=== PATIENT | male | born 1965 | race Caucasian/White ===

== ENCOUNTER 2017-05-02 19:52 | Emergency (ER) | payer MEDICARE ==
[~2017-05-02 19:52] MED LIST: ATRIPLA TABLET1 TAB PO; DIFLUCAN50 MG PO
[2017-05-02 20:41] LABS: BASOPHILS 0.4 % (0-2); EOSINOPHILS 2.2 % (0-7); HEMATOCRIT 33.4 % (42.0-54.0); HEMOGLOBIN 11.1 g/dL (13.5-17.5); IMMATURE GRANULOCYTES 1.1 % (0-5); LYMPHOCYTES 15.6 % (15-50); MCH 27.1 pg (26.0-34.0); MCHC 33.2 g/dL (31.0-37.0); MCV 81.5 fL (80.0-100.0); MEAN PLATELET VOLUME 10.4 fL (7.4-10.4); MONOCYTES 10.4 % (2-11); NEUTROPHILS 70.3 % (40-80); PLATELET COUNT 219 10x3/uL (130-400); RDW 13.7 % (11.5-14.5); WBC 5.5 10x3/uL (4.8-10.8)
[2017-05-02 20:55] LABS: ALBUMIN 2.3 g/dL (3.4-5.0); ANION GAP 13.5 mmol/L (8-16); BILIRUBIN - TOTAL 1.78 mg/dL (0.2-1.3); CALCIUM 8.2 mg/dL (8.5-10.1); CARBON DIOXIDE 22.1 mmol/L (21.0-32.0); CREATININE - SERUM 2.2 mg/dL (0.6-1.3); POTASSIUM - SERUM 4.6 mmol/L (3.5-5.1); PROTEIN - SERUM 8.6 g/dL (6.4-8.2)
== END 2017-05-02 22:32 | disposition home or self-care (01) ==
LOC: D.ER 19:52
PROVIDERS: Physician Assistant
DX: R50.9 Fever, unspecified (principal); R53.81 Other malaise; B20 Human immunodeficiency virus [HIV] disease; B19.20 Unspecified viral hepatitis C without hepatic coma; J44.9 Chronic obstructive pulmonary disease, unspecified; B37.0 Candidal stomatitis; C18.9 Malignant neoplasm of colon, unspecified; K21.9 Gastro-esophageal reflux disease without esophagitis; R06.2 Wheezing; R53.83 Other fatigue; R05 Cough; F17.200 Nicotine dependence, unspecified, uncomplicated

== ENCOUNTER → 2017-06-30 13:19 | Outpatient (CLI) | payer MEDICARE ==
[2017-07-01 14:45] LABS: BASOPHILS 0.3 % (0-2); EOSINOPHILS 2.4 % (0-7); HEMATOCRIT 35.1 % (42.0-54.0); HEMOGLOBIN 11.5 g/dL (13.5-17.5); IMMATURE GRANULOCYTES 1.8 % (0-5); LYMPHOCYTES 27.8 % (15-50); MCH 27.6 pg (26.0-34.0); MCHC 32.8 g/dL (31.0-37.0); MCV 84.4 fL (80.0-100.0); MEAN PLATELET VOLUME 9.6 fL (7.4-10.4); MONOCYTES 8.6 % (2-11); NEUTROPHILS 59.1 % (40-80); PLATELET COUNT 250 10x3/uL (130-400); RBC 4.16 10x6/uL (4.20-6.10); RDW 16.6 % (11.5-14.5); WBC 7.1 10x3/uL (4.8-10.8)
[2017-07-01 15:17] LABS: ALBUMIN 2.9 g/dL (3.4-5.0); ANION GAP 11.1 mmol/L (8-16); BILIRUBIN - TOTAL 2.6 mg/dL (0.2-1.3); CALCIUM 8.8 mg/dL (8.5-10.1); CARBON DIOXIDE 26.7 mmol/L (21.0-32.0); CHOL - HDL RATIO 7.3 ratio (2.3-4.9); CREATININE - SERUM 1.7 mg/dL (0.6-1.3); LDL-HDL RATIO 4.9 ratio (1.5-3.5); POTASSIUM - SERUM 4.8 mmol/L (3.5-5.1); THYROID STIMULATING HORMONE 2.07 uIU/mL (0.36-3.74)
[2017-07-02 10:19] LABS: HEPATITIS C ANTIBODY >11.0 (0.0-0.9)
[2017-07-02 12:18] LABS: BASOS 0 % (()); CD4 - % CD4 POS. LYMPH 11.5 % (30.8-58.5); CD4 - ABSOLUTE CD4 HELPER 230 /uL (359-1519); EOS 2 % (()); EOS (ABSOLUTE) 0.2 x10E3/uL (0.0-0.4); HEMATOCRIT 34.3 % (37.5-51.0); LYMPHS 28 % (()); MCH 26.6 pg (26.6-33.0); MCHC 32.1 g/dL (31.5-35.7); MCV 83 fL (79-97); MONOCYTES 8 % (()); MONOCYTES (ABSOLUTE) 0.6 x10E3/uL (0.1-0.9); NEUTROPHILS 60 % (()); NEUTROPHILS (ABSOLUTE) 4.3 x10E3/uL (1.4-7.0); PLATELETS 261 x10E3/uL (150-379); RBC 4.13 x10E6/uL (4.14-5.80); RDW 17.6 % (12.3-15.4); WBC 7.3 x10E3/uL (3.4-10.8)
[2017-07-02 13:17] LABS: RAPID PLASMA REAGIN Reactive (Non Reactive); TREPONEMA PALLIDUM AB Positive (Negative)
== END | disposition home or self-care (01) ==
LOC: D.LAB 13:19
PROVIDERS: Family Medicine
DX: B97.35 Human immunodeficiency virus, type 2 [HIV 2] as the cause of diseases classified elsewhere (principal)

== ENCOUNTER 2017-12-07 13:53 | Emergency (ER) | payer MEDICARE | END 2017-12-07 16:20 | disposition home or self-care (01) | LOC: D.ER 13:53 | DX: J11.1 Influenza due to unidentified influenza virus with other respiratory manifestations (principal); J44.9 Chronic obstructive pulmonary disease, unspecified; Z85.038 Personal history of other malignant neoplasm of large intestine; B19.20 Unspecified viral hepatitis C without hepatic coma; B20 Human immunodeficiency virus [HIV] disease; F17.200 Nicotine dependence, unspecified, uncomplicated ==

== ENCOUNTER → 2018-02-24 12:34 | Outpatient (CLI) | payer MEDICARE ==
[2018-02-24 14:20] LABS: ALBUMIN 3.2 g/dL (3.4-5.0); ANION GAP 13.4 mmol/L (8-16); BILIRUBIN - TOTAL 0.3 mg/dL (0.2-1.3); CALCIUM 9.1 mg/dL (8.5-10.1); CARBON DIOXIDE 23.4 mmol/L (21.0-32.0); CREATININE - SERUM 1.7 mg/dL (0.6-1.3); POTASSIUM - SERUM 5.8 mmol/L (3.5-5.1); PROTEIN - SERUM 8.7 g/dL (6.4-8.2)
== END | disposition home or self-care (01) ==
LOC: D.LAB 12:34
PROVIDERS: Student in an Organized Health Care Education/Training Program
DX: R89.9 Unspecified abnormal finding in specimens from other organs, systems and tissues (principal)

== ENCOUNTER 2018-03-22 21:52 | Emergency (ER) | payer MEDICARE ==
[~2018-03-22] VITALS: Ht 175.3 cm; Wt 65.9 kg
[2018-03-22 22:23] VITALS: Ht 175.3 cm; Wt 65.9 kg
[2018-03-23 03:25] VITALS: BP 168/84
== END 2018-03-23 04:00 | disposition home or self-care (01) ==
LOC: D.ER 21:52
DX: K22.2 Esophageal obstruction (principal); R13.10 Dysphagia, unspecified; B20 Human immunodeficiency virus [HIV] disease

== ENCOUNTER → 2018-04-01 12:00 | Outpatient (CLI) | payer MEDICARE ==
[2018-03-22 22:23] VITALS: BMI 21.4
[~2018-04-01 12:00] MED LIST changes: +Ancef 2 GM/Dextrose IV; +FLORAJEN3 CAPS460 MG PO; +GENVOYA PO; +IMODIUM2 MG PO; +STRIBILD TABLE1 EACH PO
[2018-04-01 13:07] LABS: BASOPHILS 0.6 % (0-2); EOSINOPHILS 4.9 % (0-7); HEMATOCRIT 34.3 % (42.0-54.0); HEMOGLOBIN 11.4 g/dL (13.5-17.5); IMMATURE GRANULOCYTES 0.6 % (0-5); LYMPHOCYTES 30.3 % (15-50); MCH 30.5 pg (26.0-34.0); MCHC 33.2 g/dL (31.0-37.0); MCV 91.7 fL (80.0-100.0); MEAN PLATELET VOLUME 9.6 fL (7.4-10.4); MONOCYTES 9.1 % (2-11); NEUTROPHILS 54.5 % (40-80); RBC 3.74 10x6/uL (4.20-6.10); RDW 14.6 % (11.5-14.5); WBC 4.7 10x3/uL (4.8-10.8)
[2018-04-01 13:15] LABS: PLATELET COUNT 308 10x3/uL (130-400)
[2018-04-01 13:32] LABS: ALBUMIN 3.3 g/dL (3.4-5.0); ANION GAP 13.6 mmol/L (8-16); BILIRUBIN - TOTAL 0.24 mg/dL (0.2-1.3); CALCIUM 8.5 mg/dL (8.5-10.1); CARBON DIOXIDE 24.3 mmol/L (21.0-32.0); CREATININE - SERUM 2.4 mg/dL (0.6-1.3); POTASSIUM - SERUM 4.9 mmol/L (3.5-5.1); PROTEIN - SERUM 8.4 g/dL (6.4-8.2)
[2018-04-02 13:11] LABS: BASOS 0 % (Not Estab.); CD4 - % CD4 POS. LYMPH 17.3 % (30.8-58.5); CD4 - ABSOLUTE CD4 HELPER 277 /uL (359-1519); EOS 5 % (Not Estab.); EOS (ABSOLUTE) 0.3 x10E3/uL (0.0-0.4); HEMATOCRIT 34.7 % (37.5-51.0); HEMOGLOBIN 11.5 g/dL (13.0-17.7); LYMPHS 32 % (Not Estab.); LYMPHS (ABSOLUTE) 1.6 x10E3/uL (0.7-3.1); MCHC 33.1 g/dL (31.5-35.7); MCV 91 fL (79-97); MONOCYTES 8 % (Not Estab.); MONOCYTES (ABSOLUTE) 0.4 x10E3/uL (0.1-0.9); NEUTROPHILS 55 % (Not Estab.); NEUTROPHILS (ABSOLUTE) 2.7 x10E3/uL (1.4-7.0); PLATELETS 277 x10E3/uL (150-379); RBC 3.83 x10E6/uL (4.14-5.80); RDW 14.9 % (12.3-15.4)
[2018-04-04 14:17] LABS: RAPID PLASMA REAGIN Reactive (Non Reactive); TREPONEMA PALLIDUM AB Positive (Negative)
[2018-04-04 21:07] LABS: HIV-1 RNA BY PCR <20 (())
== END | disposition home or self-care (01) ==
LOC: D.LABREF 12:00
PROVIDERS: Student in an Organized Health Care Education/Training Program
DX: A53.9 Syphilis, unspecified (principal)

== ENCOUNTER 2018-04-03 21:06 | Inpatient (IN) | payer MEDICARE ==
[~2018-04-03] VITALS: Ht 175.3 cm; Wt 66.3 kg
--- NOTE | ~2018-04-03 | EC ---
PATIENT:EVER RAGLAND DATE OF SERVICE: 04/03/18 SEX: M MEDICAL RECORD: [id number] DATE OF : 63 LOCATION:D.M2 D.212 AGE OF PATIENT: 52 ADMISSION DATE: 04/03/18 REFERRING PHYSICIAN: INTERPRETING PHYSICIAN: RADHA MARINO MD ECHOCARDIOGRAM REPORT ECHO CHARGES 4 ECHO COMPLETE Date: 04/05 CLINICAL DIAGNOSIS: FEVER,GPC IN BLOOD, ASSESS FOR VEGATATION ECHOCARDIOGRAPHIC MEASUREMENTS (adult normal given) AC root (d.<3.7cm) cm LV Septum d (<1.2 cm> 1.5 cm Valve Excursion cm LV Septum (systole) 1.6 cm Left Atria (s.<4.0cm> 3.0 cm LVPW d(<1.2cm) 1.1 cm RV (d.<2.3cm) 3.5 cm LVPW (sytole) 1.3 cm LV diastole(<5.6CM) 2.6 cm MV E-F(>70mm/sec) cm LV systole 1.7 cm LVOT Diameter 1.1 cm MV exc.(>10mm) cm Est.ejection fraction (50-75%) % DOPPLER: LVIT cm/sec A 103 cm/sec E 80.0 cm/sec LA cm/sec RVSP 25 mmHg LVOT 134 cm/sec AOP1/2T m/s Asc. Ao 216 cm/sec RVOT cm/sec RA cm/sec PA cm/sec AV Gradient Peak 18.73mmHg AV Mean 10.33mmHg AV Area 1.0 cm MV Gradient Peak 4.23 mmHg MV Mean 1.72 mmHg MV Area cm COMMENTS: Truck Loader: Dick TIWARI Radiologic Technologist Mammogram: 1 Dr. Marino TAPE# PACS Pericardial Effusion N DATE OF SERVICE: 04/05/2018 DATE OF SERVICE: 04/05/2018 FINDINGS: 1. Left ventricular chamber size is within normal limits. Left ventricular systolic function is normal. Overall ejection fraction estimated at 65%. 2. Left atrium is within normal limits at 3.0 cm. Right atrium and right ventricular chamber sizes are upper limits of normal. 3. Valvular structures: Mitral valve does have vegetation compatible with ECHOCARDIOGRAM REPORT [id number] EVER RAGLAND endocarditis seen in multiple views. The remaining valvular structures have normal structure and motion. 4. Doppler interrogation only reveals trace tricuspid regurgitation, no other valvular insufficiency or stenosis. Pulmonary systolic pressure is estimated at 25 mmHg. 5. No evidence of pericardial effusion or left ventricular thrombus. OVERALL IMPRESSION: Endocarditis, mitral valve. TRANSINT:[id number] Voice Confirmation ID: [id number] DOCUMENT ID: [id number] RADHA MARINO MD at 1207 CC: [id number] DICTATION DATE: 04/05/18 1029 STONE CIRCULAR SAWYER: 04/05/18 1250 ADM IN [place] [id number] [place] [address]
--- NOTE | ~2018-04-03 | CN ---
PATIENT NAME:EVER BROWN MEDICAL RECORD: [id number] : 63 LOCATION:. D.2128 ADMIT DATE: 04/03/18 ACCOUNT: [id number] CONSULTING PHYSICIAN: ABIDA PARKER MD REFERRING PHYSICIAN: LUCRECIA MONCADA MD DATE OF CONSULTATION: 04/04/2018 HISTORY OF PRESENT ILLNESS: Mr. Brown is a 52-year-old gentleman who has a history of HIV. He follows with Dr. Moore. According to the patient, he was doing fairly, but for the last 3 days, he has had fever and chills, generalized body aches and pain. He has a fever of 103. The patient came into the ER, now he has generalized body aches and pain, but the fever has a little bit improved. He also is having history of hepatitis, for which he is seeing Dr. Jennings. REVIEW OF SYSTEMS: Mainly in the history of present illness. PAST MEDICAL HISTORY: 1. HIV disease. 2. Hepatitis. PAST SURGICAL HISTORY: 1. He has a colon resection. 2. He has some possible lung surgery. ALLERGIES: ALLERGIC TO SULFA AND TRIMETHOPRIM. MEDICATIONS: On Hello! Messenger is reviewed. PERSONAL AND SOCIAL HISTORY: The patient is still a current everyday smoker. He is a nondrinker. FAMILY HISTORY: Noncontributory. PHYSICAL EXAMINATION: GENERAL: The patient is now lying flat comfortably. He is not in acute distress. VITAL SIGNS: The blood pressure is 124/76, pulse is 94, respirations 18, temperature 99.3, SPO2 is 96% on room air. HEENT: Conjunctivae are pink. Sclerae are not icteric. NECK: Supple, no JVD. CHEST: Excursion is minimal on both sides. There is no wheeze, no rales. HEART: Rhythm regular, normal sound, no murmur. ABDOMEN: Soft, bowel sounds present. No hepatosplenomegaly. RECTAL: Deferred. EXTREMITIES: No cyanosis, no clubbing, no pedal edema. SKIN: Warm, normal turgor. CENTRAL NERVOUS SYSTEM: The patient is awake and alert. There are no obvious cranial nerve abnormalities. The gait was not tested. CHEST RADIOGRAPH: There are no acute infiltrates. OTHER LABORATORY DATA: CBC: The WBC is 8.3, hemoglobin 11.3, hematocrit 33.7, and the platelet count 168. Chemistry: Sodium 128, potassium is 4, BUN is 27, creatinine 2.2, glucose 140. CONSULT REPORT [id number] EVER BROWN The blood culture 1 out of 2 is positive for gram-positive cocci. IMPRESSION: 1. Acute febrile illness, rule out bacteremia, rule out pneumonia. 2. Acute tracheobronchitis. 3. Acute cough. 4. Pleurisy. 5. Tobacco dependence syndrome. 6. History of human immunodeficiency virus. 7. Suspect chronic obstructive pulmonary disease. RECOMMENDATIONS: 1. Continue Levaquin and meropenem. I will start on vancomycin to cover for the MRSA. 2. Follow on the blood culture. 3. Albuterol/ipratropium nebulizer. 4. Morphine for pain control. 5. Follow up labs and chest radiographs. Dr. Link, thank you for involving me in the care of Mr. Brown. TRANSINT:[id number] Voice Confirmation ID: [id number] DOCUMENT ID: [id number] ABIDA PARKER MD at 1218 CC: [id number] DICTATION DATE: 04/04/181711 FORM BLOCK MAKER: 04/04/18 1918 ADM IN [facility] [address] [id number]
[~2018-04-03 21:06] MED LIST changes: -Ancef 2 GM/Dextrose IV; -FLORAJEN3 CAPS460 MG PO; -GENVOYA PO; -IMODIUM2 MG PO; -STRIBILD TABLE1 EACH PO
[2018-04-03 21:51] VITALS: BP 134/77
[2018-04-03 21:56] LABS: BASOPHILS 0.1 % (0-2); EOSINOPHILS 0 % (0-7); HEMATOCRIT 35.7 % (42.0-54.0); HEMOGLOBIN 11.9 g/dL (13.5-17.5); IMMATURE GRANULOCYTES 0.2 % (0-5); LYMPHOCYTES 10.1 % (15-50); MCH 30.4 pg (26.0-34.0); MCHC 33.3 g/dL (31.0-37.0); MCV 91.1 fL (80.0-100.0); MONOCYTES 7.2 % (2-11); NEUTROPHILS 82.4 % (40-80); RBC 3.92 10x6/uL (4.20-6.10); WBC 8.5 10x3/uL (4.8-10.8)
[2018-04-03 21:58] LABS: PLATELET COUNT 180 10x3/uL (130-400)
[2018-04-03 22:00] LABS: APPEARANCE CLEAR (CLEAR); BILIRUBIN NEGATIVE (NEGATIVE); COLOR ORANGE/RED (YELLOW); GLUCOSE NEGATIVE (NEGATIVE); KETONE NEGATIVE (NEGATIVE); NITRITE NEGATIVE (NEGATIVE); PROTEIN 2+ mg/dL (NEGATIVE); SPECIFIC GRAVITY 1.015 (1.005-1.020); UROBILINOGEN NORMAL (NORMAL)
[2018-04-03 22:01] LABS: EPITHELIAL CELLS 0-5 /hpf (0-5); RED CELLS - URINE 0-5 /hpf (0-5); WHITE CELLS - URINE 0-5 /hpf (0-5)
[2018-04-03 22:02] LABS: BACTERIA FEW /hpf (NONE SEEN); SPERMATOZOA 0-5 /hpf (NONE SEEN)
[2018-04-03 22:14] LABS: ALBUMIN 3.1 g/dL (3.4-5.0); ANION GAP 12.5 mmol/L (8-16); BILIRUBIN - TOTAL 0.5 mg/dL (0.2-1.3); CALCIUM 8.3 mg/dL (8.5-10.1); CREATININE - SERUM 2.2 mg/dL (0.6-1.3); POTASSIUM - SERUM 4.5 mmol/L (3.5-5.1); PROTEIN - SERUM 8.5 g/dL (6.4-8.2)
[2018-04-03 23:15] VITALS: BP 114/76
[2018-04-04] VITALS (10 sets, daily range): BP systolic 112–145; BP diastolic 58–79; Ht 175.3 cm; Wt 66.3 kg
[2018-04-04] MEDS ORDERED: STRIBILD TABLE1 EACH PO (07:40)
[2018-04-04 10:02] LABS: BASOPHILS 0.1 % (0-2); EOSINOPHILS 0 % (0-7); HEMATOCRIT 33.7 % (42.0-54.0); HEMOGLOBIN 11.3 g/dL (13.5-17.5); IMMATURE GRANULOCYTES 0.4 % (0-5); LYMPHOCYTES 7.4 % (15-50); MCH 30.4 pg (26.0-34.0); MCHC 33.5 g/dL (31.0-37.0); MCV 90.6 fL (80.0-100.0); MEAN PLATELET VOLUME 9.1 fL (7.4-10.4); MONOCYTES 6.9 % (2-11); NEUTROPHILS 85.2 % (40-80); PLATELET COUNT 168 10x3/uL (130-400); RBC 3.72 10x6/uL (4.20-6.10); RDW 14.3 % (11.5-14.5); WBC 8.3 10x3/uL (4.8-10.8)
[2018-04-04 10:32] LABS: ALBUMIN 2.7 g/dL (3.4-5.0); BILIRUBIN - TOTAL 0.4 mg/dL (0.2-1.3); CALCIUM 8.1 mg/dL (8.5-10.1); CREATININE - SERUM 2.2 mg/dL (0.6-1.3)
[2018-04-05 04:00] VITALS: BP 123/57
[2018-04-05 05:57] LABS: BASOPHILS 0.1 % (0-2); EOSINOPHILS 0.4 % (0-7); HEMATOCRIT 31.5 % (42.0-54.0); HEMOGLOBIN 10.6 g/dL (13.5-17.5); IMMATURE GRANULOCYTES 0.4 % (0-5); LYMPHOCYTES 14.8 % (15-50); MCH 30.2 pg (26.0-34.0); MCHC 33.7 g/dL (31.0-37.0); MCV 89.7 fL (80.0-100.0); MEAN PLATELET VOLUME 9.5 fL (7.4-10.4); MONOCYTES 11.5 % (2-11); NEUTROPHILS 72.8 % (40-80); PLATELET COUNT 160 10x3/uL (130-400); RBC 3.51 10x6/uL (4.20-6.10); RDW 14.5 % (11.5-14.5); WBC 6.9 10x3/uL (4.8-10.8)
[2018-04-05 06:34] LABS: ALBUMIN 2.4 g/dL (3.4-5.0); ANION GAP 13.3 mmol/L (8-16); BILIRUBIN - TOTAL 0.39 mg/dL (0.2-1.3); CALCIUM 8.2 mg/dL (8.5-10.1); CARBON DIOXIDE 22.6 mmol/L (21.0-32.0); CREATININE - SERUM 2.2 mg/dL (0.6-1.3); POTASSIUM - SERUM 3.9 mmol/L (3.5-5.1); PROTEIN - SERUM 7.6 g/dL (6.4-8.2)
[2018-04-05 08:00] VITALS: BP 124/61
[2018-04-05 10:47] VITALS: BP 105/52
[2018-04-05 20:00] VITALS: BP 142/61
[2018-04-05 23:55] VITALS: BP 156/70
[2018-04-06 04:00] VITALS: BP 129/68
[2018-04-06 06:33] LABS: BASOPHILS 0.2 % (0-2); EOSINOPHILS 1.6 % (0-7); HEMATOCRIT 28.1 % (42.0-54.0); HEMOGLOBIN 9.3 g/dL (13.5-17.5); IMMATURE GRANULOCYTES 0.2 % (0-5); MCHC 33.1 g/dL (31.0-37.0); MCV 90.6 fL (80.0-100.0); MEAN PLATELET VOLUME 9.7 fL (7.4-10.4); MONOCYTES 11.3 % (2-11); NEUTROPHILS 69.7 % (40-80); PLATELET COUNT 162 10x3/uL (130-400); RDW 14.4 % (11.5-14.5)
[2018-04-06 06:45] LABS: ALBUMIN 2.2 g/dL (3.4-5.0); ANION GAP 10.4 mmol/L (8-16); BILIRUBIN - TOTAL 0.45 mg/dL (0.2-1.3); CALCIUM 8.5 mg/dL (8.5-10.1); CARBON DIOXIDE 24.4 mmol/L (21.0-32.0); CREATININE - SERUM 1.8 mg/dL (0.6-1.3); POTASSIUM - SERUM 3.8 mmol/L (3.5-5.1); PROTEIN - SERUM 7.1 g/dL (6.4-8.2)
[2018-04-06 06:47] LABS: WBC 4.9 10x3/uL (4.8-10.8)
[2018-04-06 15:50] VITALS: BP 145/67
[2018-04-06 19:55] VITALS: BP 136/61
[2018-04-06 22:59] VITALS: BP 121/76
[2018-04-07 04:00] VITALS: BP 142/65
[2018-04-07 04:43] LABS: BASOPHILS 0.4 % (0-2); HEMATOCRIT 28.5 % (42.0-54.0); HEMOGLOBIN 9.4 g/dL (13.5-17.5); IMMATURE GRANULOCYTES 0.6 % (0-5); LYMPHOCYTES 21.2 % (15-50); MCV 91.1 fL (80.0-100.0); MEAN PLATELET VOLUME 9.5 fL (7.4-10.4); MONOCYTES 11.2 % (2-11); NEUTROPHILS 62.6 % (40-80); PLATELET COUNT 188 10x3/uL (130-400); RBC 3.13 10x6/uL (4.20-6.10); RDW 13.9 % (11.5-14.5); WBC 5.2 10x3/uL (4.8-10.8)
[2018-04-07 05:08] LABS: ALBUMIN 2.3 g/dL (3.4-5.0); ANION GAP 12.4 mmol/L (8-16); BILIRUBIN - TOTAL 0.44 mg/dL (0.2-1.3); CALCIUM 8.6 mg/dL (8.5-10.1); CARBON DIOXIDE 23.5 mmol/L (21.0-32.0); CREATININE - SERUM 1.6 mg/dL (0.6-1.3); POTASSIUM - SERUM 3.9 mmol/L (3.5-5.1); PROTEIN - SERUM 7.3 g/dL (6.4-8.2)
[2018-04-07 08:16] VITALS: BP 179/88
[2018-04-07 11:57] VITALS: BP 135/64
[2018-04-07 20:10] VITALS: BP 153/63
[2018-04-08 00:37] VITALS: BP 146/75
[2018-04-08 04:50] VITALS: BP 157/80
[2018-04-08 07:55] LABS: BASOPHILS 0.4 % (0-2); HEMATOCRIT 30.4 % (42.0-54.0); HEMOGLOBIN 10.3 g/dL (13.5-17.5); LYMPHOCYTES 20.7 % (15-50); MCH 30.6 pg (26.0-34.0); MCHC 33.9 g/dL (31.0-37.0); MCV 90.2 fL (80.0-100.0); MEAN PLATELET VOLUME 9.6 fL (7.4-10.4); MONOCYTES 13.8 % (2-11); NEUTROPHILS 61.1 % (40-80); PLATELET COUNT 210 10x3/uL (130-400); RBC 3.37 10x6/uL (4.20-6.10); RDW 13.7 % (11.5-14.5); WBC 5.1 10x3/uL (4.8-10.8)
[2018-04-08 08:07] VITALS: BP 158/74
[2018-04-08 08:10] LABS: ALBUMIN 2.3 g/dL (3.4-5.0); ANION GAP 12.8 mmol/L (8-16); BILIRUBIN - TOTAL 0.46 mg/dL (0.2-1.3); CALCIUM 8.9 mg/dL (8.5-10.1); CARBON DIOXIDE 25.2 mmol/L (21.0-32.0); CREATININE - SERUM 1.5 mg/dL (0.6-1.3); PROTEIN - SERUM 7.6 g/dL (6.4-8.2)
[2018-04-08 11:23] VITALS: BP 124/77
[2018-04-08 15:44] VITALS: BP 126/75
[2018-04-08 21:24] VITALS: BP 124/55
[2018-04-09 01:47] VITALS: BP 135/77
[2018-04-09 05:22] VITALS: BP 143/74
[2018-04-09 06:07] LABS: BASOPHILS 0.6 % (0-2); EOSINOPHILS 3.8 % (0-7); HEMATOCRIT 29.7 % (42.0-54.0); HEMOGLOBIN 9.8 g/dL (13.5-17.5); IMMATURE GRANULOCYTES 1.5 % (0-5); LYMPHOCYTES 22.8 % (15-50); MCH 29.9 pg (26.0-34.0); MCV 90.5 fL (80.0-100.0); MEAN PLATELET VOLUME 9.3 fL (7.4-10.4); MONOCYTES 12.3 % (2-11); PLATELET COUNT 219 10x3/uL (130-400); RBC 3.28 10x6/uL (4.20-6.10); RDW 13.7 % (11.5-14.5); WBC 4.8 10x3/uL (4.8-10.8)
[2018-04-09 06:38] LABS: ALBUMIN 2.3 g/dL (3.4-5.0); ANION GAP 12.4 mmol/L (8-16); BILIRUBIN - TOTAL 0.37 mg/dL (0.2-1.3); CALCIUM 8.7 mg/dL (8.5-10.1); CARBON DIOXIDE 26.6 mmol/L (21.0-32.0); CREATININE - SERUM 1.4 mg/dL (0.6-1.3); PROTEIN - SERUM 7.4 g/dL (6.4-8.2)
[2018-04-09 08:25] VITALS: BP 124/73
[2018-04-09 11:02] VITALS: BP 134/75
[2018-04-09 16:13] VITALS: BP 119/77
== END 2018-04-09 18:22 | disposition left against medical advice (07) | DRG 975 ==
LOC: D.ER 21:06 → D.M2 23:22 → D.EDHOLD 23:22 → D.M2 23:53 → D.SDCHOLD 04-07 11:18 → D.M2 04-07 11:18
PROVIDERS: Emergency Medicine; Family Medicine
DX: B20 Human immunodeficiency virus [HIV] disease (principal); J18.9 Pneumonia, unspecified organism; I39 Endocarditis and heart valve disorders in diseases classified elsewhere; J44.0 Chronic obstructive pulmonary disease with (acute) lower respiratory infection; J44.1 Chronic obstructive pulmonary disease with (acute) exacerbation; E87.1 Hypo-osmolality and hyponatremia; F17.203 Nicotine dependence unspecified, with withdrawal; N17.9 Acute kidney failure, unspecified; R78.81 Bacteremia; J20.9 Acute bronchitis, unspecified; E86.0 Dehydration; R19.7 Diarrhea, unspecified

== ENCOUNTER 2018-04-14 12:34 | Inpatient (IN) | payer MEDICARE ==
[2018-04-14] VITALS (9 sets, daily range): BP systolic 138–178; BP diastolic 66–95
[~2018-04-14] VITALS: Ht 175.3 cm; Wt 65.8 kg
--- NOTE | ~2018-04-14 | EC ---
PATIENT:EVER RAGLAND DATE OF SERVICE: 04/14/18 SEX: M MEDICAL RECORD: [id number] DATE OF : 63 LOCATION:D.M2 D.210 AGE OF PATIENT: 52 ADMISSION DATE: 04/14/18 REFERRING PHYSICIAN: INTERPRETING PHYSICIAN: SANYA WARREN MD ECHOCARDIOGRAM REPORT ECHO CHARGES 5 ECHO LIMITED Date: 04/15 CLINICAL DIAGNOSIS: MRSA ECHOCARDIOGRAPHIC MEASUREMENTS (adult normal given) AC root (d.<3.7cm) 0 cm LV Septum d (<1.2 cm> 0 cm Valve Excursion 0 cm LV Septum (systole) 0 cm Left Atria (s.<4.0cm> 0 cm LVPW d(<1.2cm) 0 cm RV (d.<2.3cm) 0 cm LVPW (sytole) 0 cm LV diastole(<5.6CM) 0 cm MV E-F(>70mm/sec) 0 cm LV systole 0 cm LVOT Diameter 0 cm MV exc.(>10mm) 0 cm Est.ejection fraction (50-75%) % DOPPLER: LVIT 0 cm/sec A 0 cm/sec E 0 cm/sec LA 0 cm/sec RVSP 0 mmHg LVOT 0 cm/sec AOP1/2T 0 m/s Asc. Ao 0 cm/sec RVOT 0 cm/sec RA 0 cm/sec PA 0 cm/sec AV Gradient Peak 0 mmHg AV Mean 0 mmHg AV Area 0 cm MV Gradient Peak 0 mmHg MV Mean 0 mmHg MV Area 0 cm COMMENTS: LIMITED STUDY (2-D ONLY) COMPLETE ECHO DONE ON 04/05/18 Venetian Blind Washer: Price DEJESUSOE Commercial Airline Pilot: 4 Dr. Montero TAPE# PACS Pericardial Effusion N DATE OF SERVICE: Limited study. He does have some valvular structures endocarditis. Grossly, LVH is present. LV internal dimensions are normal. Wall motion is normal. EF is greater than 55%. Aortic valve is tricuspid with good valve excursion. Mitral valve is visualized. No obvious vegetation is noted at this point compared to study of 04/07/18. Right-sided chambers were grossly normal. No evidence of vegetation in tricuspid valve is present. TRANSINT:[id number] Voice Confirmation ID: [id number] DOCUMENT ID: [id number] ECHOCARDIOGRAM REPORT [id number] ELLYN,SANYA RODGERS MD at 0816 CC: [id number] DICTATION DATE: 04/17/18 0852 SHOE STITCHER: 04/17/18 1437 DIS IN 04/19/[id number] [place] [address]
[~2018-04-14 12:34] MED LIST changes: +STRIBILD TABLE1 EACH PO
[2018-04-14 14:14] LABS: BASOPHILS 0.5 % (0-2); EOSINOPHILS 3.8 % (0-7); HEMATOCRIT 29.7 % (42.0-54.0); HEMOGLOBIN 9.8 g/dL (13.5-17.5); IMMATURE GRANULOCYTES 1.6 % (0-5); LYMPHOCYTES 24.8 % (15-50); MCH 29.7 pg (26.0-34.0); MEAN PLATELET VOLUME 8.9 fL (7.4-10.4); MONOCYTES 6.6 % (2-11); NEUTROPHILS 62.7 % (40-80); RDW 13.5 % (11.5-14.5); WBC 5.7 10x3/uL (4.8-10.8)
[2018-04-14 14:20] LABS: PLATELET COUNT 284 10x3/uL (130-400)
[2018-04-14 14:22] LABS: INR 1.04 (0.85-1.17); PROTIME 13.2 SECONDS (11.6-15.0)
[2018-04-14 14:23] LABS: APTT 39.4 SECONDS (22.8-39.4)
[2018-04-14 15:06] LABS: ALBUMIN 2.5 g/dL (3.4-5.0); ALKALINE PHOSPHATASE 120 U/L (46-116); ALT (SGPT) 42 U/L (10-68); BILIRUBIN - TOTAL 0.22 mg/dL (0.2-1.3); CALC OSMOLALITY 270 mosm/kg (275-300); CALCIUM 8.3 mg/dL (8.5-10.1); CARBON DIOXIDE 24.3 mmol/L (21.0-32.0); CHLORIDE - SERUM 102 mmol/L (98-107); CREATININE - SERUM 1.5 mg/dL (0.6-1.3); GLUCOSE 103 mg/dL (74-106); POTASSIUM - SERUM 4.1 mmol/L (3.5-5.1); SODIUM 135 mmol/L (136-145); UREA NITROGEN 15 mg/dL (7-18); eGFR NON AFRICAN AMERICAN 52 mL/min (90-120)
[2018-04-14 15:15] LABS: C-REACTIVE PROTEIN 2.6 mg/dL (0.0-0.9); CKMB 0.9 U/L (0.0-3.6); CREATINE KINASE 59 UL (21-232)
[2018-04-14 15:16] LABS: TROPONIN-I < 0.017 ng/mL (0.000-0.060)
[2018-04-14] MEDS ORDERED: GENVOYA PO (22:07)
[2018-04-14] MEDS ORDERED: IMODIUM2 MG PO (22:08)
[2018-04-15] VITALS (7 sets, daily range): BP systolic 118–160; BP diastolic 67–89; Ht 175.3 cm; Wt 65.8 kg
[2018-04-16] VITALS: BP 148/82
[2018-04-16 04:00] VITALS: BP 165/81
[2018-04-16 05:34] LABS: BASOPHILS 0.5 % (0-2); EOSINOPHILS 4.6 % (0-7); HEMATOCRIT 30.6 % (42.0-54.0); HEMOGLOBIN 10.1 g/dL (13.5-17.5); IMMATURE GRANULOCYTES 1.9 % (0-5); LYMPHOCYTES 20.5 % (15-50); MCH 29.7 pg (26.0-34.0); MEAN PLATELET VOLUME 9.1 fL (7.4-10.4); MONOCYTES 7.1 % (2-11); NEUTROPHILS 65.4 % (40-80); PLATELET COUNT 270 10x3/uL (130-400); RDW 13.7 % (11.5-14.5); WBC 5.7 10x3/uL (4.8-10.8)
[2018-04-16 05:48] LABS: APPEARANCE CLEAR (CLEAR); BILIRUBIN NEGATIVE (NEGATIVE); COLOR YELLOW (YELLOW); GLUCOSE NEGATIVE (NEGATIVE); KETONE NEGATIVE (NEGATIVE); NITRITE NEGATIVE (NEGATIVE); PH 5.5 (5.0-6.0); PROTEIN TRACE mg/dL (NEGATIVE); UROBILINOGEN NORMAL (NORMAL)
[2018-04-16 05:56] LABS: UDS - AMPHET POSITIVE QUAL (NEGATIVE); UDS - BARB NEGATIVE QUAL (NEGATIVE); UDS - BENZO NEGATIVE QUAL (NEGATIVE); UDS - COCAINE NEGATIVE QUAL (NEGATIVE); UDS - OPIATE NEGATIVE QUAL (NEGATIVE); UDS - PCP NEGATIVE QUAL (NEGATIVE); UDS - THC NEGATIVE QUAL (NEGATIVE)
[2018-04-16 06:18] LABS: BACTERIA FEW /hpf (NONE SEEN); EPITHELIAL CELLS OCC /hpf (0-5); RED CELLS - URINE RARE /hpf (0-5); WHITE CELLS - URINE OCC /hpf (0-5)
[2018-04-16 06:23] LABS: ANION GAP 12.5 mmol/L (8-16); CALCIUM 8.8 mg/dL (8.5-10.1); CARBON DIOXIDE 25.7 mmol/L (21.0-32.0); CREATININE - SERUM 1.6 mg/dL (0.6-1.3); POTASSIUM - SERUM 4.2 mmol/L (3.5-5.1)
[2018-04-16 08:52] VITALS: BP 158/94
[2018-04-16 11:40] LABS: % SATURATION 19 % (15-55); IRON 40 ug/dl (35-150); TOTAL IRON BIND CAPACITY 208 ug/dl (260-445); UNSAT IRON BIND CAPACITY 168 ug/dl (150-375)
[2018-04-16 21:40] VITALS: BP 130/78
[2018-04-17 05:39] LABS: BASOPHILS 0.5 % (0-2); EOSINOPHILS 4.3 % (0-7); HEMOGLOBIN 10.1 g/dL (13.5-17.5); IMMATURE GRANULOCYTES 1.4 % (0-5); MCH 29.2 pg (26.0-34.0); MCHC 32.6 g/dL (31.0-37.0); MCV 89.6 fL (80.0-100.0); MEAN PLATELET VOLUME 8.9 fL (7.4-10.4); MONOCYTES 8.3 % (2-11); NEUTROPHILS 61.5 % (40-80); PLATELET COUNT 279 10x3/uL (130-400); RBC 3.46 10x6/uL (4.20-6.10); RDW 13.5 % (11.5-14.5); WBC 5.8 10x3/uL (4.8-10.8)
[2018-04-17 05:44] LABS: ANION GAP 9.9 mmol/L (8-16); CALCIUM 8.8 mg/dL (8.5-10.1); CARBON DIOXIDE 26.3 mmol/L (21.0-32.0); CREATININE - SERUM 1.6 mg/dL (0.6-1.3); POTASSIUM - SERUM 4.2 mmol/L (3.5-5.1)
[2018-04-17 06:14] VITALS: BP 147/85
[2018-04-17 06:33] VITALS: BP 154/75
[2018-04-17 08:21] VITALS: BP 181/97
[2018-04-17 11:36] VITALS: BP 142/71
[2018-04-17 16:14] VITALS: BP 147/88
[2018-04-17 20:00] VITALS: BP 140/76
[2018-04-18] VITALS: BP 127/63
[2018-04-18 04:00] VITALS: BP 136/78
[2018-04-18 05:06] LABS: BASOPHILS 0.6 % (0-2); EOSINOPHILS 4.7 % (0-7); HEMATOCRIT 30.9 % (42.0-54.0); HEMOGLOBIN 10.2 g/dL (13.5-17.5); IMMATURE GRANULOCYTES 1.5 % (0-5); LYMPHOCYTES 24.4 % (15-50); MCH 29.6 pg (26.0-34.0); MCV 89.6 fL (80.0-100.0); MEAN PLATELET VOLUME 8.9 fL (7.4-10.4); MONOCYTES 7.4 % (2-11); NEUTROPHILS 61.4 % (40-80); PLATELET COUNT 285 10x3/uL (130-400); RBC 3.45 10x6/uL (4.20-6.10); RDW 13.4 % (11.5-14.5); WBC 5.3 10x3/uL (4.8-10.8)
[2018-04-18 05:23] LABS: ANION GAP 11.3 mmol/L (8-16); CALCIUM 8.9 mg/dL (8.5-10.1); CARBON DIOXIDE 27.3 mmol/L (21.0-32.0); CREATININE - SERUM 1.7 mg/dL (0.6-1.3); POTASSIUM - SERUM 4.6 mmol/L (3.5-5.1)
[2018-04-18 08:00] VITALS: BP 140/67
[2018-04-18 08:44] VITALS: BP 155/99
[2018-04-18 12:36] VITALS: BP 144/82
[2018-04-18 17:45] VITALS: BP 155/85
[2018-04-19 05:39] LABS: BASOPHILS 0.9 % (0-2); EOSINOPHILS 4.5 % (0-7); HEMATOCRIT 30.1 % (42.0-54.0); HEMOGLOBIN 9.9 g/dL (13.5-17.5); IMMATURE GRANULOCYTES 1.5 % (0-5); LYMPHOCYTES 24.9 % (15-50); MCH 29.3 pg (26.0-34.0); MCHC 32.9 g/dL (31.0-37.0); MCV 89.1 fL (80.0-100.0); MEAN PLATELET VOLUME 9.1 fL (7.4-10.4); MONOCYTES 9.7 % (2-11); NEUTROPHILS 58.5 % (40-80); PLATELET COUNT 275 10x3/uL (130-400); RBC 3.38 10x6/uL (4.20-6.10); RDW 13.6 % (11.5-14.5); WBC 4.7 10x3/uL (4.8-10.8)
[2018-04-19 05:52] LABS: ANION GAP 11.3 mmol/L (8-16); CALCIUM 8.4 mg/dL (8.5-10.1); CARBON DIOXIDE 27.1 mmol/L (21.0-32.0); CREATININE - SERUM 1.6 mg/dL (0.6-1.3); POTASSIUM - SERUM 4.4 mmol/L (3.5-5.1)
[2018-04-19 07:00] VITALS: BP 142/87
[2018-04-19] MEDS ORDERED: FLORAJEN3 CAPS460 MG PO (10:35)
[2018-04-19] MEDS ORDERED: Ancef 2 GM/Dextrose IV (10:36)
[2018-04-19 11:00] VITALS: BP 152/89
[2018-04-20 13:19] LABS: FOLATE (FOLIC ACID) - SERUM 2.3 ng/mL (>3.0)
== END 2018-04-19 13:15 | disposition home health service (06) | DRG 975 ==
LOC: D.ER 12:34 → D.EDHOLD 15:36 → D.M2 15:36
PROVIDERS: Family Medicine; Internal Medicine Nephrology; Student in an Organized Health Care Education/Training Program
DX: B20 Human immunodeficiency virus [HIV] disease (principal); I33.0 Acute and subacute infective endocarditis; E87.1 Hypo-osmolality and hyponatremia; F17.203 Nicotine dependence unspecified, with withdrawal; B95.61 Methicillin susceptible Staphylococcus aureus infection as the cause of diseases classified elsewhere; B19.20 Unspecified viral hepatitis C without hepatic coma; D64.9 Anemia, unspecified; F41.8 Other specified anxiety disorders; F15.90 Other stimulant use, unspecified, uncomplicated

== ENCOUNTER → 2018-04-25 16:22 | Outpatient (CLI) | payer MEDICARE ==
[2018-04-15 12:26] VITALS: BMI 21.4
[~2018-04-25 16:22] MED LIST changes: +Ancef 2 GM/Dextrose IV; +FLORAJEN3 CAPS460 MG PO; +GENVOYA PO; +IMODIUM2 MG PO
[2018-04-25 18:51] LABS: BASOPHILS 0.9 % (0-2); EOSINOPHILS 7.9 % (0-7); HEMATOCRIT 30.3 % (42.0-54.0); HEMOGLOBIN 9.7 g/dL (13.5-17.5); IMMATURE GRANULOCYTES 0.5 % (0-5); LYMPHOCYTES 33.5 % (15-50); MCH 29.5 pg (26.0-34.0); MCV 92.1 fL (80.0-100.0); MEAN PLATELET VOLUME 9.7 fL (7.4-10.4); NEUTROPHILS 47.2 % (40-80); PLATELET COUNT 289 10x3/uL (130-400); RBC 3.29 10x6/uL (4.20-6.10); RDW 14.1 % (11.5-14.5); WBC 4.4 10x3/uL (4.8-10.8)
[2018-04-25 19:52] LABS: ERYTHROCYTE SEDIMENTATION RATE 75 mm/hr (0-20)
[2018-04-25 20:20] LABS: ALBUMIN 2.9 g/dL (3.4-5.0); BILIRUBIN - DIRECT 0.08 mg/dL (0.00-0.30); BILIRUBIN - INDIRECT 0.18 mg/dL (0.00-1.00); BILIRUBIN - TOTAL 0.26 mg/dL (0.2-1.3); CREATININE - SERUM 1.8 mg/dL (0.6-1.3); PROTEIN - SERUM 8.5 g/dL (6.4-8.2)
== END | disposition home or self-care (01) ==
LOC: D.LABREF 16:22
PROVIDERS: Student in an Organized Health Care Education/Training Program
DX: I38 Endocarditis, valve unspecified (principal)

== ENCOUNTER → 2018-05-02 18:11 | Outpatient (CLI) | payer MEDICARE ==
[2018-04-15 12:26] VITALS: BMI 21.4
[2018-05-02 19:41] LABS: ALBUMIN 2.7 g/dL (3.4-5.0); BILIRUBIN - INDIRECT 0.12 mg/dL (0.00-1.00); BILIRUBIN - TOTAL 0.16 mg/dL (0.2-1.3); C-REACTIVE PROTEIN 1.7 mg/dL (0.0-0.9); CREATININE - SERUM 1.2 mg/dL (0.6-1.3); PROTEIN - SERUM 8.1 g/dL (6.4-8.2)
[2018-05-02 19:43] LABS: BILIRUBIN - DIRECT 0.04 mg/dL (0.00-0.30)
[2018-05-02 21:22] LABS: ERYTHROCYTE SEDIMENTATION RATE 73 mm/hr (0-20)
== END | disposition home or self-care (01) ==
LOC: D.LABREF 18:11
PROVIDERS: Student in an Organized Health Care Education/Training Program
DX: I38 Endocarditis, valve unspecified (principal)

== ENCOUNTER → 2018-05-09 16:14 | Outpatient (CLI) | payer MEDICARE ==
[2018-04-15 12:26] VITALS: BMI 21.4
[2018-05-09 16:23] LABS: BASOPHILS 0.4 % (0-2); EOSINOPHILS 4.1 % (0-7); HEMATOCRIT 33.2 % (42.0-54.0); HEMOGLOBIN 10.9 g/dL (13.5-17.5); IMMATURE GRANULOCYTES 0.9 % (0-5); LYMPHOCYTES 24.5 % (15-50); MCH 29.6 pg (26.0-34.0); MCHC 32.8 g/dL (31.0-37.0); MCV 90.2 fL (80.0-100.0); MEAN PLATELET VOLUME 9.8 fL (7.4-10.4); MONOCYTES 12.2 % (2-11); NEUTROPHILS 57.9 % (40-80); PLATELET COUNT 245 10x3/uL (130-400); RBC 3.68 10x6/uL (4.20-6.10); RDW 13.6 % (11.5-14.5); WBC 5.6 10x3/uL (4.8-10.8)
[2018-05-09 16:39] LABS: ALBUMIN 2.7 g/dL (3.4-5.0); BILIRUBIN - INDIRECT 0.27 mg/dL (0.00-1.00); BILIRUBIN - TOTAL 0.3 mg/dL (0.2-1.3); C-REACTIVE PROTEIN 5.8 mg/dL (0.0-0.9); CREATININE - SERUM 1.3 mg/dL (0.6-1.3)
[2018-05-09 16:40] LABS: BILIRUBIN - DIRECT 0.03 mg/dL (0.00-0.30)
[2018-05-09 17:24] LABS: ERYTHROCYTE SEDIMENTATION RATE 94 mm/hr (0-20)
== END | disposition home or self-care (01) ==
LOC: D.LABREF 16:14
PROVIDERS: Student in an Organized Health Care Education/Training Program
DX: I38 Endocarditis, valve unspecified (principal)

== ENCOUNTER → 2018-05-16 17:57 | Outpatient (CLI) | payer MEDICARE ==
[2018-04-15 12:26] VITALS: BMI 21.4
[2018-05-16 18:07] LABS: BASOPHILS 0.4 % (0-2); HEMATOCRIT 34.4 % (42.0-54.0); IMMATURE GRANULOCYTES 1.1 % (0-5); LYMPHOCYTES 25.4 % (15-50); MCH 28.9 pg (26.0-34.0); MCV 90.3 fL (80.0-100.0); MEAN PLATELET VOLUME 9.9 fL (7.4-10.4); MONOCYTES 8.2 % (2-11); NEUTROPHILS 59.9 % (40-80); PLATELET COUNT 286 10x3/uL (130-400); RBC 3.81 10x6/uL (4.20-6.10); RDW 13.9 % (11.5-14.5); WBC 4.8 10x3/uL (4.8-10.8)
[2018-05-16 18:28] LABS: ALBUMIN 2.8 g/dL (3.4-5.0)
[2018-05-16 18:29] LABS: BILIRUBIN - DIRECT 0.06 mg/dL (0.00-0.30); BILIRUBIN - INDIRECT 0.09 mg/dL (0.00-1.00); BILIRUBIN - TOTAL 0.15 mg/dL (0.2-1.3); C-REACTIVE PROTEIN 0.6 mg/dL (0.0-0.9); CREATININE - SERUM 1.5 mg/dL (0.6-1.3)
[2018-05-16 19:20] LABS: ERYTHROCYTE SEDIMENTATION RATE 26 mm/hr (0-20)
== END | disposition home or self-care (01) ==
LOC: D.LABREF 17:57
PROVIDERS: Student in an Organized Health Care Education/Training Program
DX: I38 Endocarditis, valve unspecified (principal)

== ENCOUNTER → 2018-05-23 16:45 | Outpatient (CLI) | payer MEDICARE ==
[2018-04-15 12:26] VITALS: BMI 21.4
[2018-05-23 17:37] LABS: BASOPHILS 0.4 % (0-2); EOSINOPHILS 4.6 % (0-7); HEMATOCRIT 34.1 % (42.0-54.0); HEMOGLOBIN 11.6 g/dL (13.5-17.5); IMMATURE GRANULOCYTES 1.3 % (0-5); LYMPHOCYTES 31.6 % (15-50); MCH 30.4 pg (26.0-34.0); MCV 89.5 fL (80.0-100.0); MONOCYTES 10.4 % (2-11); NEUTROPHILS 51.7 % (40-80); PLATELET COUNT 273 10x3/uL (130-400); RBC 3.81 10x6/uL (4.20-6.10); RDW 14.3 % (11.5-14.5); WBC 4.5 10x3/uL (4.8-10.8)
[2018-05-23 18:06] LABS: ALBUMIN 2.9 g/dL (3.4-5.0); BILIRUBIN - DIRECT 0.05 mg/dL (0.00-0.30); BILIRUBIN - INDIRECT 0.13 mg/dL (0.00-1.00); BILIRUBIN - TOTAL 0.18 mg/dL (0.2-1.3); CREATININE - SERUM 1.3 mg/dL (0.6-1.3); PROTEIN - SERUM 7.7 g/dL (6.4-8.2)
[2018-05-23 18:58] LABS: ERYTHROCYTE SEDIMENTATION RATE 68 mm/hr (0-20)
== END | disposition home or self-care (01) ==
LOC: D.LABREF 16:45
PROVIDERS: Student in an Organized Health Care Education/Training Program
DX: I38 Endocarditis, valve unspecified (principal)

== ENCOUNTER → 2018-06-01 10:42 | Outpatient (CLI) | payer MEDICARE ==
[2018-04-15 12:26] VITALS: BMI 21.4
== END | disposition home or self-care (01) ==
LOC: D.ECHO 10:35
DX: I33.0 Acute and subacute infective endocarditis (principal)

== ENCOUNTER 2018-06-03 22:49 | Observation (INO) | payer MEDICARE ==
[~2018-06-03] VITALS: Ht 175.3 cm; Wt 65.8 kg
[2018-06-03 23:35] LABS: BASOPHILS 0.6 % (0-2); EOSINOPHILS 4.9 % (0-7); HEMATOCRIT 34.4 % (42.0-54.0); HEMOGLOBIN 11.4 g/dL (13.5-17.5); IMMATURE GRANULOCYTES 1.3 % (0-5); LYMPHOCYTES 31.2 % (15-50); MCH 29.7 pg (26.0-34.0); MCHC 33.1 g/dL (31.0-37.0); MCV 89.6 fL (80.0-100.0); MEAN PLATELET VOLUME 9.3 fL (7.4-10.4); RBC 3.84 10x6/uL (4.20-6.10); RDW 14.9 % (11.5-14.5); WBC 5.3 10x3/uL (4.8-10.8)
[2018-06-03 23:36] LABS: PLATELET COUNT 207 10x3/uL (130-400)
[2018-06-03 23:46] LABS: INR 0.96 (0.85-1.17); PROTIME 12.4 SECONDS (11.6-15.0)
[2018-06-03 23:47] LABS: APTT 50.1 SECONDS (22.8-39.4); D-DIMER-QUANTITATIVE 0.38 ug/mLFEU (0.20-0.54)
[2018-06-03 23:49] LABS: ALBUMIN 3.1 g/dL (3.4-5.0); ALKALINE PHOSPHATASE 151 U/L (46-116); ALT (SGPT) 87 U/L (10-68); BILIRUBIN - TOTAL 0.24 mg/dL (0.2-1.3); CALC OSMOLALITY 272 mosm/kg (275-300); CALCIUM 8.3 mg/dL (8.5-10.1); CARBON DIOXIDE 30.2 mmol/L (21.0-32.0); CHLORIDE - SERUM 101 mmol/L (98-107); CREATININE - SERUM 1.8 mg/dL (0.6-1.3); GLUCOSE 101 mg/dL (74-106); POTASSIUM - SERUM 4.4 mmol/L (3.5-5.1); SODIUM 135 mmol/L (136-145); UREA NITROGEN 22 mg/dL (7-18); eGFR NON AFRICAN AMERICAN 42 mL/min (90-120)
[2018-06-04 00:07] LABS: CKMB 1.5 U/L (0.0-3.6); CREATINE KINASE 49 UL (21-232); MAGNESIUM - SERUM 1.7 mg/dL (1.8-2.4)
[2018-06-04 00:14] LABS: TROPONIN-I 0.061 ng/mL (0.000-0.060)
[2018-06-04 01:01] LABS: APPEARANCE CLEAR (CLEAR); BILIRUBIN NEGATIVE (NEGATIVE); COLOR YELLOW (YELLOW); GLUCOSE NEGATIVE (NEGATIVE); KETONE NEGATIVE (NEGATIVE); NITRITE NEGATIVE (NEGATIVE); PROTEIN NEGATIVE (NEGATIVE); SPECIFIC GRAVITY 1.015 (1.005-1.020); UROBILINOGEN NORMAL (NORMAL)
[2018-06-04 01:04] VITALS: BP 145/78
[2018-06-04 03:34] VITALS: Ht 175.3 cm; Wt 65.8 kg
[2018-06-04 04:00] VITALS: BP 142/68
[2018-06-04 08:58] VITALS: BP 145/62
== END 2018-06-04 08:30 | disposition left against medical advice (07) ==
LOC: D.ER 22:49 → OBSVTIME 06-04 01:55 → D.M2 06-04 01:55
PROVIDERS: Family Medicine
DX: R07.9 Chest pain, unspecified (principal); B20 Human immunodeficiency virus [HIV] disease; K75.9 Inflammatory liver disease, unspecified; Z72.0 Tobacco use

== ENCOUNTER 2019-01-20 14:22 | Emergency (ER) | payer MEDICARE ==
[~2019-01-20] VITALS: Ht 175.3 cm; Wt 65.9 kg
[2019-01-20 12:56] VITALS: BP 117/77; Ht 175.3 cm; Wt 65.9 kg
[2019-01-20 16:20] LABS: BASOPHILS 0.4 % (0-2); EOSINOPHILS 2.2 % (0-7); HEMATOCRIT 38.9 % (42.0-54.0); HEMOGLOBIN 13.1 g/dL (13.5-17.5); IMMATURE GRANULOCYTES 0.5 % (0-5); LYMPHOCYTES 22.2 % (15-50); MCH 29.9 pg (26.0-34.0); MCHC 33.7 g/dL (31.0-37.0); MCV 88.8 fL (80.0-100.0); MEAN PLATELET VOLUME 9.1 fL (7.4-10.4); MONOCYTES 9.5 % (2-11); NEUTROPHILS 65.2 % (40-80); PLATELET COUNT 247 10x3/uL (130-400); RBC 4.38 10x6/uL (4.20-6.10); RDW 14.7 % (11.5-14.5); WBC 8.1 10x3/uL (4.8-10.8)
[2019-01-20 16:36] LABS: INR 1.07 (0.85-1.17); PROTIME 13.4 SECONDS (11.6-15.0)
[2019-01-20 16:40] LABS: ALBUMIN 3.6 g/dL (3.4-5.0); ANION GAP 15.3 mmol/L (8-16); BILIRUBIN - TOTAL 0.72 mg/dL (0.2-1.3); CARBON DIOXIDE 23.3 mmol/L (21.0-32.0); POTASSIUM - SERUM 4.6 mmol/L (3.5-5.1); PROTEIN - SERUM 9.1 g/dL (6.4-8.2)
== END 2019-01-20 19:26 | disposition home or self-care (01) ==
LOC: EDSTATUS 14:22 → D.ER 14:22
PROVIDERS: Emergency Medicine
DX: T18.128A Food in esophagus causing other injury, initial encounter (principal); X58.XXXA Exposure to other specified factors, initial encounter; Y93.89 Activity, other specified; Y92.019 Unspecified place in single-family (private) house as the place of occurrence of the external cause; I48.91 Unspecified atrial fibrillation; I49.3 Ventricular premature depolarization

== ENCOUNTER 2019-05-04 13:54 | Emergency (ER) | payer MEDICARE ==
[~2019-05-04] VITALS: Ht 175.3 cm; Wt 68.2 kg
[2019-05-04 14:21] VITALS: Ht 175.3 cm; Wt 68.2 kg
[2019-05-04 15:35] VITALS: BP 140/81
== END 2019-05-04 15:54 | disposition home or self-care (01) ==
LOC: D.ER 13:54
DX: K22.2 Esophageal obstruction (principal); B20 Human immunodeficiency virus [HIV] disease

== ENCOUNTER 2019-08-30 20:01 | Emergency (ER) | payer MEDICARE ==
[~2019-08-30] VITALS: Ht 175.3 cm; Wt 65.9 kg
[2019-08-30 20:06] VITALS: Ht 175.3 cm; Wt 65.9 kg
[2019-08-30 21:15] LABS: BASOPHILS 0.2 % (0-2); HEMATOCRIT 33.5 % (42.0-54.0); HEMOGLOBIN 10.6 g/dL (13.5-17.5); IMMATURE GRANULOCYTES 0.5 % (0-5); LYMPHOCYTES 36.2 % (15-50); MCH 28.2 pg (26.0-34.0); MCHC 31.6 g/dL (31.0-37.0); MCV 89.1 fL (80.0-100.0); MEAN PLATELET VOLUME 9.4 fL (7.4-10.4); MONOCYTES 11.1 % (2-11); PLATELET COUNT 207 10x3/uL (130-400); RBC 3.76 10x6/uL (4.20-6.10); RDW 15.2 % (11.5-14.5)
[2019-08-30 21:28] LABS: APPEARANCE CLEAR (CLEAR); BILIRUBIN NEGATIVE (NEGATIVE); COLOR YELLOW (YELLOW); GLUCOSE NEGATIVE (NEGATIVE); KETONE NEGATIVE (NEGATIVE); NITRITE NEGATIVE (NEGATIVE); PROTEIN 1+ mg/dL (NEGATIVE); UROBILINOGEN NORMAL (NORMAL)
[2019-08-30 21:33] LABS: APTT 43.4 SECONDS (22.8-39.4); INR 1.06 (0.85-1.17); PROTIME 13.3 SECONDS (11.6-15.0)
[2019-08-30] MEDS ORDERED: TESSALON PERLE100 MG PO (22:07)
[2019-08-30] MEDS ORDERED: ZYRTEC10 MG PO (22:07)
[2019-08-30 22:45] VITALS: BP 144/85
[2019-09-04 16:08] LABS: AEROBE ID Final report (())
== END 2019-08-30 22:45 | disposition home or self-care (01) ==
LOC: D.ER 20:01
PROVIDERS: Family Medicine
DX: R05 Cough (principal); J30.2 Other seasonal allergic rhinitis; B20 Human immunodeficiency virus [HIV] disease; Z72.0 Tobacco use

== ENCOUNTER 2019-09-05 10:56 | Emergency (ER) | payer MEDICARE ==
[~2019-09-05] VITALS: Ht 175.3 cm; Wt 65.9 kg
[~2019-09-05 10:56] MED LIST changes: +TESSALON PERLE100 MG PO; +ZYRTEC10 MG PO
[2019-09-05 11:01] VITALS: Ht 175.3 cm; Wt 65.9 kg
[2019-09-05 12:05] LABS: ANION GAP 12.6 mmol/L (8-16); CALCIUM 8.1 mg/dL (8.5-10.1); CARBON DIOXIDE 25.4 mmol/L (21.0-32.0)
[2019-09-05 12:07] LABS: BASOPHILS 0.3 % (0-2); EOSINOPHILS 4.7 % (0-7); HEMATOCRIT 32.9 % (42.0-54.0); HEMOGLOBIN 10.5 g/dL (13.5-17.5); IMMATURE GRANULOCYTES 0.3 % (0-5); LYMPHOCYTES 30.9 % (15-50); MCH 27.9 pg (26.0-34.0); MCHC 31.9 g/dL (31.0-37.0); MCV 87.5 fL (80.0-100.0); MEAN PLATELET VOLUME 9.5 fL (7.4-10.4); NEUTROPHILS 55.8 % (40-80); PLATELET COUNT 207 10x3/uL (130-400); RBC 3.76 10x6/uL (4.20-6.10); RDW 14.9 % (11.5-14.5); WBC 6.2 10x3/uL (4.8-10.8)
[2019-09-05 12:11] LABS: ALBUMIN 2.7 g/dL (3.4-5.0); BILIRUBIN - TOTAL 0.31 mg/dL (0.2-1.3); PROTEIN - SERUM 7.8 g/dL (6.4-8.2)
[2019-09-05] MEDS ORDERED: OMNICEF300 MG PO (12:27)
[2019-09-05] MEDS ORDERED: FLUTICASONE PRO16 GM NASAL (12:27)
[2019-09-05 13:33] VITALS: BP 136/83
== END 2019-09-05 13:37 | disposition home or self-care (01) ==
LOC: D.ER 10:56
PROVIDERS: Family Medicine
DX: J40 Bronchitis, not specified as acute or chronic (principal); B37.9 Candidiasis, unspecified; N28.9 Disorder of kidney and ureter, unspecified; B20 Human immunodeficiency virus [HIV] disease; Z72.0 Tobacco use

== ENCOUNTER 2019-10-10 18:18 | Inpatient (IN) | payer MEDICARE ==
[~2019-10-10] VITALS: Ht 175.3 cm; Wt 65.8 kg
[~2019-10-10 18:18] MED LIST changes: +FLUTICASONE PRO16 GM NASAL; +OMNICEF300 MG PO
[2019-10-10 19:42] LABS: BASOPHILS 0.1 % (0-2); HEMATOCRIT 35.4 % (42.0-54.0); HEMOGLOBIN 11.3 g/dL (13.5-17.5); IMMATURE GRANULOCYTES 0.5 % (0-5); LYMPHOCYTES 19.3 % (15-50); MCH 28.3 pg (26.0-34.0); MCHC 31.9 g/dL (31.0-37.0); MCV 88.7 fL (80.0-100.0); MEAN PLATELET VOLUME 10.1 fL (7.4-10.4); MONOCYTES 6.8 % (2-11); NEUTROPHILS 72.3 % (40-80); PLATELET COUNT 242 10x3/uL (130-400); RBC 3.99 10x6/uL (4.20-6.10); RDW 15.5 % (11.5-14.5); WBC 8.6 10x3/uL (4.8-10.8)
[2019-10-10 19:52] LABS: CALC OSMOLALITY 271 mosm/kg (275-300); CARBON DIOXIDE 21.5 mmol/L (21.0-32.0); CHLORIDE - SERUM 102 mmol/L (98-107); CREATININE - SERUM 1.6 mg/dL (0.6-1.3); GLUCOSE 91 mg/dL (74-106); POTASSIUM - SERUM 4.7 mmol/L (3.5-5.1); SODIUM 134 mmol/L (136-145); UREA NITROGEN 25 mg/dL (7-18); eGFR NON AFRICAN AMERICAN 48 mL/min (90-120)
[2019-10-10 20:03] LABS: INR 1.23 (0.85-1.17); PROTIME 14.9 SECONDS (11.6-15.0)
[2019-10-10 20:04] LABS: APTT 40.4 SECONDS (22.8-39.4)
[2019-10-10 20:14] LABS: ALBUMIN 2.8 g/dL (3.4-5.0); ALKALINE PHOSPHATASE 145 U/L (46-116); ALT (SGPT) 27 U/L (10-68); BILIRUBIN - TOTAL 0.46 mg/dL (0.2-1.3); CKMB 2.2 U/L (0.0-3.6); CREATINE KINASE 75 UL (21-232); PRO BNP 12224 pg/mL (0-125); PROTEIN - SERUM 8.3 g/dL (6.4-8.2)
[2019-10-10 20:18] LABS: TROPONIN-I 0.067 ng/mL (0.000-0.060)
[2019-10-10 21:33] VITALS: BP 148/91
--- NOTE | 2019-10-11 01:00 | NUR ---
PT BROUGHT TO FLOOR VIA WHEELCHAIR. AMBULATED TO BED WITHOUT DIFFICULTY. RIGHT CHEST PORT INFUSING NS @ 100 AND LEVAQUIN. GAVE LOVENOX SHOT AT ORDERED. PT DENIES PAIN. SOB WITH EXERTION, O2 2L/NC. EXP WHEEZES HER BILAT. DENIES NEEDS AT THIS TIME. CL IN REACH, WILL CTM
[2019-10-11 02:03] VITALS: BP 111/81; BMI 21.4
[2019-10-11 05:30] VITALS: BP 172/80
[2019-10-11 07:01] LABS: BASOPHILS 0 % (0-2); EOSINOPHILS 0 % (0-7); HEMATOCRIT 33.9 % (42.0-54.0); HEMOGLOBIN 10.7 g/dL (13.5-17.5); IMMATURE GRANULOCYTES 0.2 % (0-5); MCH 28.2 pg (26.0-34.0); MCHC 31.6 g/dL (31.0-37.0); MCV 89.2 fL (80.0-100.0); MEAN PLATELET VOLUME 10.1 fL (7.4-10.4); MONOCYTES 1.9 % (2-11); NEUTROPHILS 89.9 % (40-80); PLATELET COUNT 208 10x3/uL (130-400); RDW 15.7 % (11.5-14.5)
[2019-10-11 07:03] LABS: ANION GAP 15.3 mmol/L (8-16); CARBON DIOXIDE 20.6 mmol/L (21.0-32.0); CREATININE - SERUM 1.7 mg/dL (0.6-1.3); MAGNESIUM - SERUM 1.8 mg/dL (1.8-2.4); PHOSPHOROUS 2.8 mg/dL (2.5-4.9); POTASSIUM - SERUM 4.9 mmol/L (3.5-5.1)
[2019-10-11 07:25] LABS: WBC 5.4 10x3/uL (4.8-10.8)
[2019-10-11 08:08] VITALS: BP 122/85
[2019-10-11 12:44] LABS: UDS - AMPHET POSITIVE QUAL (NEGATIVE); UDS - BARB NEGATIVE QUAL (NEGATIVE); UDS - BENZO NEGATIVE QUAL (NEGATIVE); UDS - COCAINE NEGATIVE QUAL (NEGATIVE); UDS - OPIATE NEGATIVE QUAL (NEGATIVE); UDS - PCP NEGATIVE QUAL (NEGATIVE); UDS - THC NEGATIVE QUAL (NEGATIVE)
[2019-10-11 13:54] LABS: APPEARANCE CLEAR (CLEAR); BACTERIA FEW /hpf (NEGATIVE); BILIRUBIN NEGATIVE (NEGATIVE); COLOR YELLOW (YELLOW); EPITHELIAL CELLS OCC /hpf (0-5); GLUCOSE 250 mg/dL (NEGATIVE); KETONE NEGATIVE (NEGATIVE); MUCUS <1+ /lpf (NONE SEEN); NITRITE NEGATIVE (NEGATIVE); PROTEIN 1+ mg/dL (NEGATIVE); RED CELLS - URINE 0-5 /hpf (0-5); UROBILINOGEN NORMAL (NORMAL); WHITE CELLS - URINE NSEEN /hpf (NEGATIVE)
[2019-10-11 14:41] LABS: MAGNESIUM - SERUM 1.6 mg/dL (1.8-2.4); THYROID STIMULATING HORMONE 0.97 uIU/mL (0.36-3.74); TROPONIN-I 0.038 ng/mL (0.000-0.060)
[2019-10-11 17:03] VITALS: BP 143/91
--- NOTE | 2019-10-11 17:59 | NUR ---
I have reviewed this patient and I concur with the Shift Assessment completed by the Licensed Practical Nurse today this shift.
[2019-10-11 20:00] VITALS: BP 150/90
--- NOTE | 2019-10-11 21:00 | NUR ---
A/O WITH NO SIGNS OF DISTRESS NOTED. RT PORT INFUSING AND NC @2L. REFUSED STERIODS STATING THAT MEDICATION MAKES HIM AGGRIVATED. DENIES NO NEEDS AT THIS TIME. CONTINUE PLAN OF CARE.
--- NOTE | 2019-10-11 23:46 | NUR ---
CALLED MD FOR COUGHING MEDS PER PT REQUEST. DENIES NO OTHER NEEDS AT THIS TIME. CONTIINUE PLAN OF CARE.
[2019-10-12] VITALS: BP 124/91
[2019-10-12 04:00] VITALS: BP 142/95
--- NOTE | 2019-10-12 04:39 | NUR ---
WALK IN ROOM AND PT IS SOB, RR 25, AND O2 IS 85%. HE STATED THAT HE WOKE UP HAVING A HARD TIME BREATHING. SAT PT UP AN TURNED O2 UP TO 3L. O2 LEVEL BRIANNA UP TO 98% AND RR SLOWED TO 18. EXPIRATORY WHEEZES ASCULTATED. EDUCATED PT ABOUT STERIODS AND BREATHING TREATMENT. STATED THAT BREATHING TREATMENTS DIDN'T WORK AND HE DOESN'T WANT TO TAKE STERIODS BECAUSE OF THE WAY THEY MADE HIM FEEL. WILL CONTINUE TO MONITOR.
[2019-10-12 06:16] LABS: BASOPHILS 0.1 % (0-2); EOSINOPHILS 0 % (0-7); IMMATURE GRANULOCYTES 0.3 % (0-5); LYMPHOCYTES 10.7 % (15-50); MCHC 31.4 g/dL (31.0-37.0); MCV 89.1 fL (80.0-100.0); MEAN PLATELET VOLUME 10.9 fL (7.4-10.4); MONOCYTES 6.9 % (2-11); RBC 3.93 10x6/uL (4.20-6.10); RDW 15.8 % (11.5-14.5)
[2019-10-12 06:27] LABS: PLATELET COUNT 277 10x3/uL (130-400); WBC 10.9 10x3/uL (4.8-10.8)
--- NOTE | 2019-10-12 06:40 | NUR ---
WALK IN ROOM, PT SITTING ON SIDE OF BED BREATHING HEAVILY AND CRYING OUT HE COULDN'T BREATH. O2 STAT @77% AND SKIN IS LAY HEALTH ADVOCATE. RAPID INITIATED. BLOOD GASES OBTAINED AND HIGH FLOW O2 @9L. GAVE 1MG ATIVAN, BREATHING TREATMENT, AND STEROIDS. RESTING COMFORTABLY IN BED IN HIGH PIPER POSITION. WILL CONTINUE TO MONITOR.
[2019-10-12 07:02] LABS: ANION GAP 15.8 mmol/L (8-16); CARBON DIOXIDE 20.6 mmol/L (21.0-32.0); CREATININE - SERUM 1.7 mg/dL (0.6-1.3); POTASSIUM - SERUM 4.4 mmol/L (3.5-5.1)
--- NOTE | 2019-10-12 07:35 | NUR ---
PT SITTING UP IN BED WITH EYES CLOSED. PT PRESENTS GROGGY. OPENING EYES TO NAME BEING CALLED AND GREETS STAFF APPROPRIATELY THEN CLOSES EYES BACK. O2 @ 7L HIFLO AT THIS TIME. RIGHT CHEST PORT ACCESSED WITH NS @ KVO INFUSING VIA PUMP. SITE WITHOUT REDNESS OR EDEMA. DENIES PAIN AT THIS TIME. DENIES FURTHER NEEDS AT THIS TIME. CL WITHIN REACH. ENCOURAGED TO CALL WITH NEEDS. CONTINUE POC
[2019-10-12 09:13] LABS: CKMB 4.5 U/L (0.0-3.6); CREATINE KINASE 99 UL (21-232)
[2019-10-12 09:15] LABS: TROPONIN-I 0.094 ng/mL (0.000-0.060)
[2019-10-12 12:04] VITALS: BMI 21.4
--- NOTE | 2019-10-12 12:05 | EC ---
PATIENT:EVER RAGLAND JR DATE OF SERVICE: 10/10/19 SEX: M MEDICAL RECORD: [id number] DATE OF : 63 LOCATION:D.MS [place] AGE OF PATIENT: 53 ADMISSION DATE: 10/10/19 REFERRING PHYSICIAN: INTERPRETING PHYSICIAN: SANYA WARREN MD ECHOCARDIOGRAM REPORT ECHO CHARGES 4 ECHO COMPLETE Date: 10/11/19 CLINICAL DIAGNOSIS: HISTORY OF ENDOCARDITIS ASSESS FOR VEGATATION ECHOCARDIOGRAPHIC MEASUREMENTS (adult normal given) AC root (d.<3.7cm) 2.9 cm LV Septum d (<1.2 cm> 1.1 cm Valve Excursion 1.1 cm LV Septum (systole) 1.4 cm Left Atria (s.<4.0cm> 3.9 cm LVPW d(<1.2cm) 1.3 cm RV (d.<2.3cm) 5.1 cm LVPW (sytole) 1.5 cm LV diastole(<5.6CM) 6.1 cm MV E-F(>70mm/sec) cm LV systole 4.9 cm LVOT Diameter 1.5 cm MV exc.(>10mm) 1.8 cm Est.ejection fraction (50-75%) % DOPPLER: LVIT cm/sec A 55.0 cm/sec E 97.0 cm/sec LA cm/sec RVSP 36 mmHg LVOT 88 cm/sec AOP1/2T m/s Asc. Ao 155 cm/sec RVOT 61 cm/sec RA cm/sec PA 90 cm/sec AV Gradient Peak 9.63 mmHg AV Mean 5.62 mmHg AV Area 1.9 cm MV Gradient Peak 5.05 mmHg MV Mean 1.71 mmHg MV Area cm COMMENTS: Soda Drier Feeder: 2 MALACHI TIWARI Rope Making Machine Operator: 3 Dr. Gresham TAPE# PACS Pericardial Effusion N DATE OF SERVICE: 10/11/2019 Adequate 2D echo, color flow, spectral Doppler, and M-mode. No LVH. LV internal dimensions appear mildly dilated. LV wall motion appears normal. EF is greater than or equal to 55%. Aortic valve is tricuspid. No evidence of stenosis by Doppler interrogation. Left atrium normal at 3.9 cm. Mitral valve shows no prolapse. Trace MR. Right-sided chambers grossly normal. Mild TR. ECHOCARDIOGRAM REPORT [id number] EVER RAGLAND L JR FINDINGS: No obvious vegetation in all 4 cardiac valves. TRANSINT:[id number] Voice Confirmation ID: [id number] DOCUMENT ID: [id number] SANYA WARREN MD at 1205 CC: [id number] DICTATION DATE: 10/11/19 1240 PORTABLE TRACK CREW CHIEF: 10/11/191951 ADM IN [place] [id number] [place] [id number]
[2019-10-12 14:04] LABS: CKMB 5.3 U/L (0.0-3.6); CREATINE KINASE 131 UL (21-232)
[2019-10-12 14:06] LABS: TROPONIN-I 0.073 ng/mL (0.000-0.060)
[2019-10-12 16:40] VITALS: BP 143/85
[2019-10-12 20:00] VITALS: BP 144/85
--- NOTE | 2019-10-12 21:00 | NUR ---
AFTER ROUNDS WERE MADE AT SHIFT CHANGE PT WALKS OFF FLOOR. RETURNS TO ROOM PUT ON O2 AND GAVE MEDS. RT CHEST PORT DRESSING CLEAN AND INTACT. DENIES NO OTHER NEEDS AT THIS TIME. CONTINUE PLAN OF CARE.
[2019-10-12 21:15] LABS: CKMB 5.5 U/L (0.0-3.6); CREATINE KINASE 164 UL (21-232); TROPONIN-I 0.055 ng/mL (0.000-0.060)
[2019-10-13] VITALS: BP 129/75
[2019-10-13 04:00] VITALS: BP 165/86
[2019-10-13 07:00] LABS: BASOPHILS 0.1 % (0-2); EOSINOPHILS 0 % (0-7); IMMATURE GRANULOCYTES 0.4 % (0-5); LYMPHOCYTES 5.2 % (15-50); MCH 27.5 pg (26.0-34.0); MCHC 30.8 g/dL (31.0-37.0); MCV 89.2 fL (80.0-100.0); MEAN PLATELET VOLUME 10.2 fL (7.4-10.4); MONOCYTES 2.3 % (2-11); PLATELET COUNT 318 10x3/uL (130-400); RDW 15.9 % (11.5-14.5); WBC 12.3 10x3/uL (4.8-10.8)
[2019-10-13 07:09] LABS: ANION GAP 17.1 mmol/L (8-16); CALCIUM 8.2 mg/dL (8.5-10.1); CARBON DIOXIDE 21.7 mmol/L (21.0-32.0); CREATININE - SERUM 1.9 mg/dL (0.6-1.3); POTASSIUM - SERUM 4.8 mmol/L (3.5-5.1)
[2019-10-13 07:22] LABS: RBC 2.69 10x6/uL (4.20-6.10)
[2019-10-13 07:23] LABS: HEMOGLOBIN 7.4 g/dL (13.5-17.5)
[2019-10-13 09:09] LABS: BASOS 0 % (Not Estab.); CD4 - ABSOLUTE CD4 HELPER 48 /uL (359-1519); EOS 0 % (Not Estab.); HEMATOCRIT 34.5 % (37.5-51.0); HEMOGLOBIN 10.8 g/dL (13.0-17.7); LYMPHS 8 % (Not Estab.); LYMPHS (ABSOLUTE) 0.4 x10E3/uL (0.7-3.1); MCH 28.4 pg (26.6-33.0); MCHC 31.3 g/dL (31.5-35.7); MCV 91 fL (79-97); MONOCYTES 2 % (Not Estab.); MONOCYTES (ABSOLUTE) 0.1 x10E3/uL (0.1-0.9); NEUTROPHILS 90 % (Not Estab.); NEUTROPHILS (ABSOLUTE) 4.6 x10E3/uL (1.4-7.0); PLATELETS 204 x10E3/uL (150-450); RDW 15.8 % (12.3-15.4); WBC 5.1 x10E3/uL (3.4-10.8)
[2019-10-13 09:56] LABS: HEMOGLOBIN 7.3 g/dL (13.5-17.5)
[2019-10-13 10:25] VITALS: Ht 175.3 cm; Wt 65.8 kg
--- NOTE | 2019-10-13 12:20 | NUR ---
PRBC ONE UNIT TO BE GIVEN AND STARTED AT THIS TIME VIA INFUSAPORT. V/S TAKEN AND RECORDED. NO REQUESTS FROM PT.
[2019-10-13 12:52] VITALS: BP 141/41
--- NOTE | 2019-10-13 14:45 | NUR ---
BLOOD COMPLETED. VS STABLE. NO COMPLAINTS FROM PT.
--- NOTE | 2019-10-13 16:42 | MORECARE ---
CASE MANAGEMENT DISCHARGE SUMMARY PATIENT: EVER RAGLAND JR UNIT: [id number] ADM DATE: 10/10/19 AGE: 53 : 63 SEX: M ROOM/BED: D.2226 AUTHOR: CAROLINE ROBLES PHYSICIAN: REFERRING PHYSICIAN: VICKIE LIVINGSTON MD DATE OF SERVICE: 10/13/19 Discharge Plan Patient Name: EVER RAGLAND [facility] [facility] 1965 Planned Disposition: Home Anticipated Discharge Date: Discharge Date: Expected LOS: Initial Reviewer: [email or web address] Initial Review Date: 10/13/2019 Generated: 10/13/19 5:42 pm DCPIA - Discharge Planning Initial Assessment Updated by [email or web address]: Kendra Oliva on 10/13/19 4:38 pm * Is the patient Alert and Oriented? Yes * How many steps to enter\exit or inside your home? 5/0 * PCP Dr. Dixon's INCUBATOR OPERATOR * Pharmacy [facility] on [facility] * Preadmission Environment Home Alone * ADLs Independent * Equipment None * List name and contact numbers for known caregivers / representatives who currently or will assist patient after discharge: Venus Cabral [facility] - [phone] * Verbal permission to speak to the caregivers and representatives has been obtained from the patient. Yes * Community resources currently utilized None * Additional services required to return to the preadmission environment? Yes * Can the patient safely return to the preadmission environment? Yes * Has this patient been hospitalized within the prior 30 days at any hospital? No Patient Name: EVER RAGLAND Page [phone] at 1642 All edits/amendments must be made on the electronic document DICTATION DATE: 10/13/191641 ENERGY ASSISTANT: MARCY 10/13/191641 RPT#: [id number] DC DATE: STATUS: ADM IN [facility] [address] [place] [address] END OF REPORT
--- NOTE | 2019-10-13 16:54 | MORECARE ---
CASE MANAGEMENT DISCHARGE SUMMARY PATIENT: EVER RAGLAND UNIT: [id number] ADM DATE: 10/10/19 AGE: 53 : 63 SEX: M ROOM/BED: D.2226 AUTHOR: MARGARET,DOC PHYSICIAN: REFERRING PHYSICIAN: VICKIE LIVINGSTON MD DATE OF SERVICE: 10/13/19 Discharge Plan Patient Name: EVER RAGLAND Facility: [facility]:[place] : 1965 Planned Disposition: Home Anticipated Discharge Date: Discharge Date: Expected LOS: Initial Reviewer: [email or web address] Initial Review Date: 10/13/2019 Generated: 10/13/19 5:53 pm Comments DCP- Discharge Planning Updated by [email or web address]: Kendra Oliva on 10/13/19 3:[address] Patient Name: EVER RAGLAND Admission Status: ER Accout number: [id number] Admission Date: 10-10-2019 : 1965 Admission Diagnosis: Attending: VICKIE LIVINGSTON Current LOS: 3 Anticipated DC Date: Planned Disposition: Home Primary Insurance: HU[employer]NA CHOICE PPO MCR ADVANT Discharge Planning Comments: CM met with patient to complete initial dc planning assessment. CM educated patient on the CM role and verbal consent given by patient to complete assessment. Patient lives at home alone. At discharge patient plans to return and feels this is a safe discharge. CM discussed availability of home health, rehab services, and medical equipment. Patient denied known discharge needs at this time. I did discuss the possibility of needing oxygen at discharge [facility] CM will continue to follow and will assist as needed with dc plans/needs. Shoe Clerk: Kendra Oliva DCPIA - Discharge Planning Initial Assessment Updated by [email or web address]: Kendra Oliva on 10/13/19 4:38 pm * Is the patient Alert and Oriented? Yes * How many steps to enter\exit or inside your home? 5/0 * PCP Dr. Dixon's ELECTRIC TOOL REPAIRER * Pharmacy [facility] on [address] * Preadmission Environment Home Alone * ADLs Independent * Equipment None * List name and contact numbers for known caregivers / representatives who currently or will assist patient after discharge: Venus Cabral [facility] - [phone] * Verbal permission to speak to the caregivers and representatives has been obtained from the patient. Yes * Community resources currently utilized None * Additional services required to return to the preadmission environment? Yes * Can the patient safely return to the preadmission environment? Yes * Has this patient been hospitalized within the prior 30 days at any hospital? No Coverage Notice Reviewer: [email or web address] Gonzalo Kendra Pj Notice Issued Date-Time: 10/13/2019 16:42 Notice Type: Patient Choice Letter Notice Delivered To: Patient Relationship to Patient: Self Clinical Research Physician Name: Delivery Method: HAND - Hand Delivered Rena Days: Prior Verbal Notification: Recipient Understood Notice: Yes Recipient Signature: Yes Med Rec Note Co-signed by Attending: Coverage Notice Comment: ABBE for Chasidy signed Last DP export: 10/13/19 3:42 pm Patient Name: EVER RAGLAND Page [phone] at 1654 All edits/amendments must be made on the electronic document DICTATION DATE: 10/13/191652 CORN CROP SUPERVISOR: MARCY 10/13/191652 RPT#: [id number] DC DATE: STATUS: ADM IN [facility] [address] [place] [address] END OF REPORT
[2019-10-13 18:14] VITALS: BP 147/58
[2019-10-13 20:00] VITALS: BP 138/82
[2019-10-13 20:14] LABS: HEMATOCRIT 35.7 % (42.0-54.0); HEMOGLOBIN 11.3 g/dL (13.5-17.5)
[2019-10-14] VITALS: BP 155/86
--- NOTE | 2019-10-14 03:41 | NUR ---
ASSESSED AT THE BEGINNING OF THE SHIFT. PT IS ALERT AND ORIENTED, ABLE TO VERBALIZE NEEDS. HE IS GETTING UP TO THE BATHROOM AD LIZBETH AND HAS NOT VOICED ANY COMPLAINTS OF PAIN. AT HS HE REFUSED HIS SOLUMEDROL AND STATED THAT IT MADE HIM ANGRY AND NERVOUS. HE HAD HIS O2 OFF AND EVEN THOUGH HIS O2 SATS WERE OK HE WAS BREATHING HARD. WHEEZING WAS NOTED. HE AGREED TO WEAR HIS O2 TO SLEEP AND REST HIS BODY. HE DID GO OUT TO SMOKE PRIOR GOING TO BED. AFTER RETURNING TO BED HE HAS SLEPT OFF AND ON WITH NO NEEDS VOICED.
[2019-10-14 04:00] VITALS: BP 154/93
--- NOTE | 2019-10-14 04:45 | NUR ---
PT WAS CHECKED ON FREQUENTLY DURING THE NIGHT AND AT TIMES HE APPEARED TO BE ASLEEP. HE STATED HE HAD BEEN AWAKE ALL NIGHT WHEN WE JACOBO HIS LAB FOR AM. . HE COMPLAINED THAT THE MD HAD NOT GIVEN HIM ANYTHING TO HELP HIM REST. PT WAS TOLD WE WOULD PASS IT ON TO THE DAY NURSE TO CHECK ON IT BUT IT WOULD HELP IF HE TALKED TO THE MD ALSO. HE THEN STATED HE WAS GONG TO SMOKE AND HE WAS LEAVING THE FLOOR HE ADVISED THE NURSE HE WAS NOT TAKING ANYMORE MEDICINE UNTIL HE TALKED WITH THE MD. WILL HLD HIS MEDS FOR NOW.
[2019-10-14 05:07] LABS: BASOPHILS 0.1 % (0-2); EOSINOPHILS 0 % (0-7); IMMATURE GRANULOCYTES 0.3 % (0-5); LYMPHOCYTES 5.7 % (15-50); MCH 28.4 pg (26.0-34.0); MCHC 31.6 g/dL (31.0-37.0); MCV 89.8 fL (80.0-100.0); MEAN PLATELET VOLUME 10.3 fL (7.4-10.4); MONOCYTES 3.4 % (2-11); NEUTROPHILS 90.5 % (40-80); PLATELET COUNT 282 10x3/uL (130-400); RDW 15.7 % (11.5-14.5); WBC 11.9 10x3/uL (4.8-10.8)
[2019-10-14 05:08] LABS: RBC 4.23 10x6/uL (4.20-6.10)
[2019-10-14 05:19] LABS: CALCIUM 8.3 mg/dL (8.5-10.1); CARBON DIOXIDE 22.4 mmol/L (21.0-32.0); CREATININE - SERUM 1.9 mg/dL (0.6-1.3); MAGNESIUM - SERUM 1.8 mg/dL (1.8-2.4); PHOSPHOROUS 3.8 mg/dL (2.5-4.9); POTASSIUM - SERUM 4.4 mmol/L (3.5-5.1)
--- NOTE | 2019-10-14 06:09 | NUR ---
MEDS WERE REPLACED IN THE PYXIS AND PT CAME BACK FROM SMOKING , AND IS NOW ASLEEP IN BED. LIGHTS OFF AND DOOR PULLED TO.
--- NOTE | 2019-10-14 06:44 | NUR ---
WHEN MR ELLYN WOKE UP HE CALLED FOR HIS ANTIBOTIC BUT CONT. TO REFUSE HIS PROTONIC. HE STATED THAT THAT HAD TAKEN ALL THE EDEMA HE HAD IN HIS LEGS SO HE COULD TAKE IT NOW.
[2019-10-14 08:36] VITALS: BP 145/98
--- NOTE | 2019-10-14 10:37 | NUR ---
I have reviewed this patient and I concur with the Shift Assessment completed by the Licensed Practical Nurse today this shift.
--- NOTE | 2019-10-14 12:03 | NUR ---
PT LYING IN BED STATES HE IS NOT GETTING ANY BETTER AND NO ONE LISTENS TO HIM ABOUT WHAT HE NEEDS, TOLD PT HE NEEDS TO STOP REFUSING MEDS AND HE WOULD GET BETTER WE ARE ALL HERE TO TRY AND HELP HIM, PT STILL AGITATED AND ASKED ME TO LEAVE HIM ALONE. CONTINUE WITH PLAN OF CARE
[2019-10-14 13:31] VITALS: BP 143/99
--- NOTE | 2019-10-14 13:37 | NUR ---
PT WALKING AROUND UNABLE TO BREATHE, ASKED PT TO SIT DOWN AND PLACE O2 ON PT REFUSED STATES MAKES IT WORSE, PT IS NOW SITTING IN BED WITH ARMS DRAPED OVER TABLE. CONTINUE WITH PLAN OF CARE
--- NOTE | 2019-10-14 14:06 | NUR ---
PT IS WANTIG TO LEAVE. IS NONCOMPLIANT WITH CARE AND VERY RUDE TO STAFF. WANTS TO SPEAK WITH DR AGAIN, WILL CONTINUE WITH PLAN OF CARE
--- NOTE | 2019-10-14 14:45 | NUR ---
PT LEFT AMA, HAD PT SIGN FORMS AND NOTIFIED PHYSICIAN.
--- NOTE | 2019-10-15 10:40 | MORECARE ---
CASE MANAGEMENT DISCHARGE SUMMARY PATIENT: EVER RAGLAND UNIT: [id number] ADM DATE: 10/10/19 AGE: 53 : 63 SEX: M ROOM/BED: D.2226 AUTHOR: MARGARETDOC PHYSICIAN: REFERRING PHYSICIAN: VICKIE LIVINGSTON MD DATE OF SERVICE: 10/15/19 Discharge Plan Patient Name: EVER RAGLAND Facility: [facility]:[place] : 1965 Planned Disposition: Home Anticipated Discharge Date: Discharge Date: 10/14/2019 Expected LOS: Initial Reviewer: [email or web address] Initial Review Date: 10/13/2019 Generated: 10/15/19 11:40 am Comments DCP- Discharge Planning Updated by [email or web address]: Kendra Oliva on 10/13/19 3:[address] Patient Name: EVER RAGLAND Admission Status: ER Accout number: [id number] Admission Date: 10-10-2019 : 1965 Admission Diagnosis: Attending: VICKIE LIVINGSTON Current LOS: 3 Anticipated DC Date: Planned Disposition: Home Primary Insurance: HUMANA CHOICE PPO MCR ADVANT Discharge Planning Comments: CM met with patient to complete initial dc planning assessment. CM educated patient on the CM role and verbal consent given by patient to complete assessment. Patient lives at home alone. At discharge patient plans to return and feels this is a safe discharge. CM discussed availability of home health, rehab services, and medical equipment. Patient denied known discharge needs at this time. I did discuss the possibility of needing oxygen at discharge and ABBE for [facility]. CM will continue to follow and will assist as needed with dc plans/needs. Live Ammunition Inspector: Kendra Oliva DCPIA - Discharge Planning Initial Assessment Updated by [email or web address]: Kendra Oliva on 10/13/19 4:38 pm * Is the patient Alert and Oriented? Yes * How many steps to enter\exit or inside your home? 5/0 * PCP Dr. Dixon's SET UP MOLD TECHNICIAN * Pharmacy [facility] on [address] * Preadmission Environment Home Alone * ADLs Independent * Equipment None * List name and contact numbers for known caregivers / representatives who currently or will assist patient after discharge: Venus Misha [facility] [phone] * Verbal permission to speak to the caregivers and representatives has been obtained from the patient. Yes * Community resources currently utilized None * Additional services required to return to the preadmission environment? Yes * Can the patient safely return to the preadmission environment? Yes * Has this patient been hospitalized within the prior 30 days at any hospital? No Coverage Notice Reviewer: [email or web address] Gonzalo Oliva Notice Issued Date-Time: 10/13/2019 16:42 Notice Type: Patient Choice Letter Notice Delivered To: Patient Relationship to Patient: Self Beach Attendant Name: Delivery Method: HAND - Hand Delivered Rena Days: Prior Verbal Notification: Recipient Understood Notice: Yes Recipient Signature: Yes Med Rec Note Co-signed by Attending: Coverage Notice Comment: ABBE Umaña signed Last DP export: 10/13/19 3:54 pm Patient Name: EVER RAGLAND Page [phone] at 1040 All edits/amendments must be made on the electronic document DICTATION DATE: 10/15/19 1040 PRESS HAND: MARCY 10/15/19 1040 RPT#: [id number] DC DATE:10/14/19 STATUS: DIS IN [facility] [address] [place] [address] END OF REPORT
--- NOTE | 2019-10-16 11:13 | CN ---
PATIENT NAME:EVER RAGLAND JR MEDICAL RECORD: [id number] : 63 LOCATION:[id number] ADMIT DATE: 10/10/19 ACCOUNT: [id number] CONSULTING PHYSICIAN: RADHA MAN MD REFERRING PHYSICIAN: VICKIE LIVINGSTON MD DATE OF CONSULTATION: 10/13/2019 CARDIOLOGY CONSULTATION DIAGNOSES: 1. Shortness of breath, dyspnea on exertion. 2. Increased troponin. 3. Pneumonia. 4. Human immunodeficiency virus. 5. Smoking. 6. Chronic obstructive pulmonary disease. 7. Methamphetamine use. 8. Colon cancer. HISTORY OF PRESENT ILLNESS: This is a 53-year-old gentleman who presents with no real cardiac symptomatology, shortness of breath, dyspnea on exertion, found to have pneumonia, mildly elevated troponin. Denies any chest pain or chest discomfort. EKG is with no changes, has no history of ischemic heart disease, was quite hypoxic when he came in. PHYSICAL EXAMINATION: CONSTITUTIONAL/GENERAL APPEARANCE: Well nourished, well developed, appears stated age. EYES: Lids and conjunctivae noninjected. No discharge. No pallor. ENT: Lips within normal limit. No cyanosis. No pallor. NECK: Carotid arteries, bilateral normal upstroke. No bruits. No thrills. No jugular venous pressure or distention. CERVICAL LYMPH NODES: Nontender. Nonenlarged. THYROID: Not enlarged. No nodules. CARDIOVASCULAR: Precordial exam, nondisplaced. No heaves or pericardial thrills. Rate and rhythm, regular. Heart sounds, normal S1, normal S2. No S3, no gallop, no rub. Systolic murmur, not heard. Diastolic murmur, not heard. RESPIRATORY: Respiratory effort, unlabored. Normal curvature. No thoracic deformity. No chest wall tenderness. Percussion, resonant. Auscultation, clear. No wheezes, no rales, no rhonchi. ABDOMEN: Soft, nondistended, nontender. No abdominal pain, no vomiting and normal appetite. MUSCULOSKELETAL: No joint tenderness, normal gait, normal tone. SKIN: Warm and dry. OVERALL IMPRESSION: Increased troponin, most likely stress leak from acute hypoxic respiratory failure. Center medical management on treatment of the acute hypoxic respiratory failure. We will get an echocardiogram. No other cardiac workup testing should be necessary. TRANSINT:[id number] Voice Confirmation ID: [id number] DOCUMENT ID: [id number] CONSULT REPORT [id number] EVER RAGLAND JR, JEFFREY MD at 1113 CC: [id number] DICTATION DATE: 10/13/19 1023 RESEARCH AFFILIATE: 10/13/19 1259 DIS IN 10/14/19 [place] [id number] [place] [id number]
[2019-10-16 22:06] LABS: IMMUNOGLOBULIN E 431 IU/mL (6-495)
[2019-10-20 18:08] LABS: AEROBE ID Final report (())
== END 2019-10-14 14:48 | disposition left against medical advice (07) | DRG 974 ==
LOC: D.ER 18:18 → D.MS 23:52
PROVIDERS: Emergency Medicine; Family Medicine; Internal Medicine Pulmonary Disease; ADMIT Family Medicine; ATTEND Family Medicine
DX: A41.9 Sepsis, unspecified organism (principal); J96.01 Acute respiratory failure with hypoxia; B20 Human immunodeficiency virus [HIV] disease; J18.9 Pneumonia, unspecified organism; E87.1 Hypo-osmolality and hyponatremia; N17.9 Acute kidney failure, unspecified; D64.9 Anemia, unspecified; N18.9 Chronic kidney disease, unspecified; E83.42 Hypomagnesemia; E78.5 Hyperlipidemia, unspecified; J43.9 Emphysema, unspecified